=== PATIENT | female | born 1945 | race Caucasian/White ===

== ENCOUNTER → 2020-12-19 14:11 | Outpatient (CLI) | payer MEDICARE, OTHER, SELFPAY ==
[2020-12-19 16:04] LABS: Coronavirus 19 IgG Antibody Negative (Negative); Coronavirus 19 IgM Antibody Negative (Negative)
== END ==
PROVIDERS: Visit Provider Ophthalmology
DX: Z01.812 Encounter for preprocedural laboratory examination (principal); Z11.52 Encounter for screening for COVID-19; H25.12 Age-related nuclear cataract, left eye
CPT/HCPCS: 36415; 86328

== ENCOUNTER 2020-12-20 07:56 | Day surgery (SDC) | payer MEDICARE, OTHER, SELFPAY ==
[2020-12-20] VITALS (7 sets, daily range): BP systolic 144–169; BP diastolic 70–98; PULSE 53–71; RESP 16–18; TEMP 36.2–36.3; O2SAT 94–98; BMI 38.0
== END 2020-12-20 10:31 | disposition home or self-care (01) ==
PROVIDERS: PCP Family Medicine; Visit Provider Ophthalmology
DX: H26.9 Unspecified cataract (principal); M19.90 Unspecified osteoarthritis, unspecified site; H91.90 Unspecified hearing loss, unspecified ear; Z90.49 Acquired absence of other specified parts of digestive tract
CPT/HCPCS: 66984; V2632

== ENCOUNTER 2025-02-22 13:39 | Outpatient (CLI) | payer MEDICARE, OTHER, SELFPAY ==
--- OUTSIDE RECORDS SUMMARY | 2025-02-22 13:43 | XMS_ITS | Clinical Summary ---
Author Organization [facility] Address [address] [place] [id number] Care Team Providers Care Manager Balance Name Role Phone Melina Tello MD Primary Care Provider [phone] Source Comments This information has been disclosed to you from confidential records protectedfrom disclosure by state law. You shall make no further disclosure of thisinformation without the specific, written, and informed release of theindividual to whom it pertains, or as otherwise permitted by law. A generalauthorization for the release of medical or other information is not sufficientfor the purposes of therelease of HIV test results or diagnoses. [id number] Social History Tobacco Use Types Packs/Day Years Used Date Smoking Tobacco: Never Assessed Comments Unknown Sex and Gender Information Value Date Recorded Sex Assigned at Not on file Legal Sex Female 4:17 PM EST Gender Identity Not on file Sexual Orientation Not on file Plan of Treatment Not on file Insurance MEDICARE A AND B [facility] Care Teams Manager Balance Relationship Specialty Start Date End Date Melina Tello MD PCP - General Family Medicine 06/18/13
[2025-02-22 14:07] LABS: Blood Urea Nitrogen 11 mg/dl (7-17); Estimated Glomerular Filt Rate 81 ml/min (>60); GFR (African American) 98 ML/MIN (>60)
--- NOTE | 2025-02-22 14:30 | CT_ITS ---
FINAL REPORT TECHNIQUE: Multiple axial CT sections were performed from the foramen magnum to the vertex. Coronal and sagittal reformatted images were also obtained. Precontrast and postcontrast injection images were obtained. This study was performed with technique to keep radiation doses as low as reasonably achievable, (ALARA). Individualized dose reduction techniques using automated exposure control or adjustment of mA and/or kV according to the patient size were employed. CLINICAL HISTORY: Vertigo COMPARISON: None FINDINGS: There is extensive streak artifact over the right parietal region, from what is presumed to be a cochlear implant. There has been a partial right mastoid resection. The ventricles are normal in size. There is no evidence of hemorrhage. There is mild decreased attenuation in the deep white matter, compatible with age. No masses are identified. No extra-axial fluid collection is seen. There is lobular mucoperiosteal thickening present in the maxillary sinuses bilaterally. No osseous abnormality is seen on the bone window images. Postcontrast images demonstrate no abnormal enhancement. IMPRESSION: Extensive streak artifact from what is presumed to be a right cochlear implant. A partial right mastoid resection has been performed. Mild decreased attenuation in the deep white matter, compatible with age. Lobular mucoperiosteal thickening in the bilateral maxillary sinuses. Reviewed, Interpreted and Dictated by Andrew Cohen MD Transcribed by Socorro Morel Authenticated and [facility]
[2025-02-22] MEDS: SODIUM CHLORIDE 0.9% 10ML SYR (RAD ONLY) 10 ML IV (14:40)
[2025-02-22] MEDS: IOPAMIDOL-370 (76%);100ML BOTTLE 93 ML IV (14:40)
== END 2025-02-22 23:59 | disposition home or self-care (01) ==
PROVIDERS: PCP Family Medicine; Visit Provider Nurse Practitioner
DX: R90.89 Other abnormal findings on diagnostic imaging of central nervous system (principal); R90.82 White matter disease, unspecified; R42 Dizziness and giddiness; Z96.21 Cochlear implant status; Z98.890 Other specified postprocedural states
CPT/HCPCS: 36415; 70470; 82565; 84520; Q9967